=== PATIENT | male | born 1990 | race Caucasian/White ===

== ENCOUNTER 2021-11-29 12:43 | Emergency (ER) | payer OTHER ==
[~2021-11-29] VITALS: Ht 180.3 cm; Wt 77.1 kg
[2021-11-29] MEDS ORDERED: NALT50TA PO (12:59)
[2021-11-29] MEDS ORDERED: IV NORMAL SALINE 1000 ML BAG IV ONE (13:00)
[2021-11-29 13:37] LABS: HEMATOCRIT 46.7 % (36.7-47.1); MEAN CORPUSCULAR HEMOGLOBIN 30.7 uug (23.8-33.4); MEAN CORPUSCULAR VOLUME 88.9 fL (73.0-96.2); PLATELET COUNT (AUTO) 205 K/uL (152-348)
[2021-11-29 13:41] LABS: CREATININE 1.2 mg/dL (0.6-1.3); POTASSIUM 3.6 mmol/L (3.5-5.1)
[2021-11-29 13:47] LABS: BILIRUBIN,DIRECT 0.1 mg/dL (0.0-0.2); BILIRUBIN,TOTAL 0.5 mg/dL (0.2-1.0); TOTAL PROTEIN, SERUM 7.7 g/dL (6.4-8.2)
[2021-11-29] MEDS ORDERED: DICY10CA13 PO (14:21)
[2021-11-29] MEDS ORDERED: METR500T PO (14:21)
--- NOTE | 2021-11-29 14:40 | NUR ---
Removed IV intact, site okay, bandaged. Pt wanted to stop IV, approx. 800ml NS infused. Gave pt RX and d/c instructions, pt verbalized understanding.
== END 2021-11-29 15:40 | disposition home or self-care (01) ==
LOC: EDBD 12:45 → ER 12:45
DX: R10.9 Unspecified abdominal pain (principal); R19.7 Diarrhea, unspecified; R53.82 Chronic fatigue, unspecified; Z86.19 Personal history of other infectious and parasitic diseases
CPT/HCPCS: 99284; 74176; 96360; 80076; 80048; 83690; 85025; 87493; 87046; 87177; J7040; 36415; 86625; A4663